=== PATIENT | female | born 1980 | race Caucasian/White ===

== ENCOUNTER 2018-01-19 13:57 | Emergency (ER) | payer OTHER ==
[~2018-01-19] VITALS: Ht 162.6 cm; Wt 77.1 kg
--- NOTE | ~2018-01-19 | EKG ---
[place] [address] [facility] [place] [address] ELECTROCARDIOGRAM REPORT Name: DIONICIOPATRICIA [facility]: [id number] Admission: 01/19/18 Attend Phys: Discharge: Date of : 76 Report #: [id number] THIS REPORT FOR: //name// [facility] ED Test Date: 2018-01-19 Test Time: 14:01:45 Pat Name: PATRICIA GREENBERG Department: Room: Gender: F [employer]: 10 : 1980 Requested By: Conchis Rao Order Number: [id number] MD: Sunny Bolton Measurements Intervals Eighty Four Rate: 101 P: 66 WA: 152 QRS: 52 QRSD: 99 T: 16 QT: 339 QTc: 440 Interpretive Statements Sinus tachycardia Otherwise normal tracing No previous ECG available for comparison Electronically Signed On 01-19-2018 15:39:38 CDT by Sunny Bolton [email or web address] <ELECTRONICALLY SIGNED> By: Sunny Bolton MD, [facility] 01/19/18 1539 1401 1401 Sunny Bolton MD, FACC /EPI
[2018-01-19 14:34] LABS: BASOPHILS 0.7 % (0.0-2.0); EOSINOPHILS 4.8 % (0.0-3.0); HEMATOCRIT 41.2 % (37.0-47.0); HEMOGLOBIN 14.1 gm/dL (12.0-15.0); LYMPHOCYTES 32.3 % (24.0-44.0); MCH 29.7 pg (26.0-34.0); MCHC 34.1 g/dL (28.0-37.0); MCV 87.2 fL (80.0-100.0); MONOCYTES 8.8 % (1.0-8.0); PLATELET COUNT 236 thou/uL (150-400); POLYS 53.4 % (36.0-66.0); RBC 4.73 mil/uL (4.20-5.00); RDW 13.7 % (10.5-14.5); WBC 7.5 thou/uL (4.0-11.0)
[2018-01-19 14:42] LABS: ANION GAP 9 mmol/L (7-16); BUN 13 mg/dL (7-18); CALCIUM 9.6 mg/dL (8.5-10.1); CHLORIDE 105 mmol/L (98-107); CO2 26 mmol/L (21-32); CREATININE 0.8 mg/dL (0.6-1.0); GLUCOSE 91 mg/dL (74-106); POTASSIUM 3.9 mmol/L (3.5-5.1); SODIUM 140 mmol/L (136-145)
[2018-01-19 14:51] LABS: TROPONIN-I < 0.04 ng/mL (<0.06)
[2018-01-19] MEDS ORDERED: NORCO 5-325 TA1 EACH PO (17:07)
[2018-01-19 17:41] VITALS: BP 109/76
== END 2018-01-19 17:41 | disposition home or self-care (01) ==
LOC: ER 13:57
PROVIDERS: Emergency Medicine
DX: R07.9 Chest pain, unspecified (principal); M54.12 Radiculopathy, cervical region